=== PATIENT | female | born 1935 | race Two or more races ===

== ENCOUNTER 2017-06-22 17:04 | Emergency (ER) | payer OTHER, MEDICAID ==
[~2017-06-22] VITALS: Ht 160 cm; Wt 61.0 kg
[2017-06-22 17:18] VITALS: BP 151/76
[2017-06-22] MEDS ORDERED: ATOR10TA69 PO (17:22)
[2017-06-22] MEDS ORDERED: ASPI-1159 PO (17:22)
== END 2017-06-22 20:30 | disposition left against medical advice (07) ==
LOC: ER 19:06
DX: Z53.21 Procedure and treatment not carried out due to patient leaving prior to being seen by health care provider (principal); E78.00 Pure hypercholesterolemia, unspecified; Z90.710 Acquired absence of both cervix and uterus